=== PATIENT | male | born 1985 | race Caucasian/White ===

== ENCOUNTER 2025-02-26 12:58 | Inpatient (IN) ==
[2025-02-26 13:35] LABS: Hematocrit (blood only) 46.6 % (42.0-52.0); Hemoglobin 17.2 g/dl (14.0-18.0); Immature Granulocytes # (auto) 0.04 K/uL (0.01-0.20); Immature Granulocytes % (auto) 0.3 %; Mean Corpuscular Hemoglobin 30.6 pg (25.0-34.0); Mean Corpuscular Volume 82.9 fL (80.0-100.0); Platelet Count 284 K/uL (130-400); RDW Standard Deviation 36.2 fL (36.4-46.3); Red Blood Count 5.62 M/uL (4.70-6.10); White Blood Count 12.23 K/ul (4.8-10.8)
--- NOTE | 2025-02-26 13:36 | Emergency Department Note ---
Impression & Plan Hypertension, Headache, Elevated troponin, Leukocytosis ED Provider Note NAME: ROB NIÑO AGE: 39 SEX: M : 1985 ARRIVES VIA: Walk-In INFORMANT: [Patient] ED PROVIDER(S): [Kb Gutierrez MD] CHIEF COMPLAINT: Hypertension, headache HISTORY OF PRESENT ILLNESS: The patient is a 39-year-old male who states that 4 weeks ago, he began with a posterior headache. He saw his doctor's office recently and, was told that the headache was likely tension related. He was given steroids and placed on naproxen. The patient states the headache has persisted. At the doctor's office during the initial visit, his blood pressure was high but, it was thought likely situational. The patient does have a follow-up appointment next week, 4 days from today. The patient states that his headache has been ongoing and, he went to urgent care today. They told him to come to the ED as his blood pressure was quite high. There has been no arm or leg weakness, no chest pain or shortness of breath. He does have some leg swelling but this is a baseline issue for him. He is not currently on any type of antihypertensive medication. PMHx/PSHx/Social Hx: See Below PHYSICAL EXAM: GENERAL: Patient is in no acute distress. HEENT: No acute trauma, normocephalic atraumatic, mucous membranes moist, no nasal congestion. NECK: No stridor, no adenopathy, no meningismus, trachea is midline. LUNGS: Clear to auscultation bilaterally, no wheeze, no rhonchi, breath sounds equal. HEART: Without murmurs gallops or rubs, regular rate and rhythm. ABDOMEN: Soft, nontender, no peritonitis. EXTREMITIES: No cyanosis, full range of motion of all the joints without pain or difficulty. Mild bilateral pedal edema. NEUROLOGIC: Oriented x 3, no acute motor or sensory deficits, no focal weakness. SKIN: No jaundice, no diaphoresis. DIFFERENTIAL DIAGNOSIS: Hypertension, renal failure, electrolyte imbalance, intracranial bleeding, among others. EMERGENCY DEPARTMENT PROCEDURES: MEDICAL DECISION MAKING: There is a mild leukocytosis, this could be consistent with infection or the recent steroid use. There was a normal hemoglobin and platelet count. No renal failure or significant electrolyte abnormality. There was a bilirubin elevation although, the remaining liver enzymes were unremarkable. Patient appeared to be in a euthyroid state. ECG showed a sinus tachycardia without any acute ST elevation. Cardiac enzyme testing x 1 was slightly elevated, this troponin elevation could be secondary to cardiac injury or mismatch from the higher blood pressure. Urinalysis does not show findings of infection. Chest x-ray does not show pneumonia or significant cardiomegaly. Brain CT shows no acute bleed or mass effect. On exam, there were no focal neurologic findings. The patient was not febrile. No meningismus. The patient was given IV labetalol, 10 mg, a second at 10 mg dose was given IV. Patient was given 10 mg of oral lisinopril. Patient presents with an elevated blood pressure and headache. He was quite hypertensive while here in the ED. He did show some improvement in the blood pressure elevation with the medication that was administered. Given the persistent hypertension, given the headache, given the troponin elevation, admission/monitoring is warranted. I spoke with the patient and case management, the on-call hospitalist was consulted. Prior/Outside records/notes reviewed: None ECG per my interpretation: Indication was hypertension. The ECG shows a sinus tachycardia with a rate of 104. There is a possible old inferior and old anterior infarct. There is no acute ST elevation, no PVCs. QTc is 444. Continuous Cardiac Monitoring per my interpretation: An order was placed for continuous cardiac monitoring. The monitor shows a rate of 105 with sinus tachycardia. Imaging/x-ray results per my interpretation: Chest x-ray does not show CHF or pneumonia. No worrisome cardiomegaly. Chronic Medical/Social conditions affecting care: None Care/Management discussed with: Case management, the on-call hospitalist. Level of care consideration(s): After review of the information above and other included data: --I believe the patient requires escalation of care to admission DISPOSITION: Admission Past Med/Surg History Problem List (Updated 02/26/25 @ 15:23 by Kb Gutierrez MD) Leukocytosis (Acute) Elevated troponin (Acute) Headache (Acute) Hypertension (Acute) GERD (gastroesophageal reflux disease) Snoring Sleep apnea Palpitations (Acute) Neck pain (Acute) Neck pain (Acute) Neck pain (Acute) Medical History Diabetes Social History Smoking Status: Never smoker Preferred Language: Armenian Feels Safe at Home: Yes Allergies Allergies Allergy/AdvReac Type Severity Reaction Status Date / Time No Known Allergies Allergy Unverified 09/06/14 15:22 Home Meds Home Medications Medication Instructions Recorded Confirmed Insulin Nph (Novolin-N) 30 unit subcut QPM ##0 05/09/14 Insulin Nph (Novolin-N) 40 unit subcut QAM ##0 05/09/14 Insulin Regular (Novolin-R) unit subcut ACHS ##0 05/09/14 Multivitamin 1 tab PO DAILY ##0 07/30/14 Results & Data (ED) Vital Signs Vital Signs - 24 hr 02/26/25 13:01 02/26/25 13:30 02/26/25 13:33 Temperature 36.6 C Temperature Source Temporal Artery Scan Pulse Rate 105 H 97 H Pulse Rate from SpO2 Sensor 97 H Respiratory Rate 18 16 Respiratory Effort / Characteristics Non-Labored Spontaneous Respiratory Depth Normal Respiratory Pattern Regular Blood Pressure 201/115 H 201/131 H Blood Pressure Mean 143 149 Pulse Oximetry 98 97 Oxygen Delivery Method Room Air Sepsis Recent Fever Within 48 Hours No Sepsis New/Unexplained Change in Mental Status N/A Sepsis Action Taken by Nursing No Action Required 02/26/25 13:54 02/26/25 14:00 02/26/25 14:08 Temperature Temperature Source Pulse Rate 84 95 H Pulse Rate from SpO2 Sensor 84 Respiratory Rate 13 Respiratory Effort / Characteristics Respiratory Depth Respiratory Pattern Blood Pressure 216/146 H 198/122 H Blood Pressure Mean 155 147 Pulse Oximetry 98 Oxygen Delivery Method Sepsis Recent Fever Within 48 Hours Sepsis New/Unexplained Change in Mental Status Sepsis Action Taken by Nursing 02/26/25 14:09 02/26/25 14:24 02/26/25 14:54 Temperature Temperature Source Pulse Rate 79 85 86 Pulse Rate from SpO2 Sensor 80 Respiratory Rate 20 Respiratory Effort / Characteristics Respiratory Depth Respiratory Pattern Blood Pressure 202/131 H 202/131 H 193/124 H Blood Pressure Mean 154 Pulse Oximetry 98 Oxygen Delivery Method Sepsis Recent Fever Within 48 Hours Sepsis New/Unexplained Change in Mental Status Sepsis Action Taken by Nursing 02/26/25 15:11 Temperature Temperature Source Pulse Rate 74 Pulse Rate from SpO2 Sensor Respiratory Rate Respiratory Effort / Characteristics Respiratory Depth Respiratory Pattern Blood Pressure 161/96 H Blood Pressure Mean Pulse Oximetry Oxygen Delivery Method Sepsis Recent Fever Within 48 Hours Sepsis New/Unexplained Change in Mental Status Sepsis Action Taken by Long-Term Medications Current Medication List: was personally reviewed by me Laboratory Data Attestation: I reviewed the patient's lab results. 02/26/25 13:16 02/26/25 13:16 Lab Results 02/26/25 02/26/25 Range/Units 13:16 14:24 WBC 12.23 H (4.8-10.8) K/ul RBC 5.62 (4.70-6.10) M/uL Hgb 17.2 (14.0-18.0) g/dl Hct 46.6 (42.0-52.0) % MCV 82.9 (80.0-100.0) fL MCH 30.6 (25.0-34.0) pg MCHC 36.9 H (32.0-36.0) g/dL RDW Std Deviation 36.2 L (36.4-46.3) fL RDW Coeff of Jessica 12.0 (11.5-14.5) % Plt Count 284 (130-400) K/uL MPV 10.0 (9.4-12.4) fL Immature Gran % (Auto) 0.3 % Neut % (Auto) 72.2 % Lymph % (Auto) 18.5 % [place] % (Auto) 7.6 % Eos % (Auto) 1.0 % Baso % (Auto) 0.4 % Neut # (Auto) 8.83 H (1.40-6.50) K/uL Lymph # (Auto) 2.26 (1.20-3.40) K/uL [place] # (Auto) 0.93 H (0.11-0.59) K/uL Eos # (Auto) 0.12 (0.00-0.50) K/uL Baso # (Auto) 0.05 (0.00-0.20) K/uL Immature Gran # (Auto) 0.04 (0.01-0.20) K/uL Sodium 135 L (136-145) mmol/L Potassium 3.5 (3.5-5.1) mmol/L Chloride 96 L (98-107) mmol/L Carbon Dioxide 30 (21-32) mmol/L Anion Gap 9 (3-11) BUN 13 (6-23) mg/dl Creatinine 0.95 (0.6-1.4) mg/dl Est Cr Clr Drug Dosing 124.2 ml/min eGFR 105.72 BUN/Creatinine Ratio 13.7 (10-20) Glucose 143 H (70-99(Fasting)) mg/dl Calcium 9.6 (8.6-10.3) mg/dl Magnesium 2.1 (1.7-2.4) mg/dl Total Bilirubin 1.9 H (0.2-1.0) mg/dl AST 14 (13-39) U/L ALT 26 (7-52) U/L Alkaline Phosphatase 102 (34-104) U/L Troponin I High Sens 38.7 H (0-20) pg/ml Total Protein 7.5 (6.0-8.3) gm/dl Albumin 4.3 (3.4-5.0) gm/dl Globulin 3.2 (2.5-4.0) gm/dl Albumin/Globulin Ratio 1.3 (0.9-2) TSH 1.093 (0.300-4.500) uIu/ml Urine Color Yellow Urine Appearance Clear (Clear) Urine pH 7.5 (4.5-7.5) Ur Specific [place] 1.013 (1.000-1.030) Urine Protein 2+ H (Negative) Urine Glucose (UA) Trace H (Negative) Urine Ketones Negative (Negative) Urine Blood Negative (Negative) Urine Nitrite Negative (Negative) Urine Bilirubin Negative (Negative) Urine Urobilinogen Negative (Negative) Ur Leukocyte Esterase Negative (Negative) Urine WBC (Auto) 0-5 (0-5) /hpf Urine RBC (Auto) 0-2 (0-2) /hpf U Hyaline Cast (Auto) 0-2 (0-2) /lpf U Epithel Cells (Auto) 0-2 (0-2) /hpf Urine Bacteria (Auto) None Seen (None Seen) Urine Comment Administered Medications Discontinued Medications Labetalol HCl (Labetalol Hcl Iv 5 Mg/Ml 20ml) 10 mg IV NOW STA Stop: 02/26/25 13:33 Last Admin: 02/26/25 13:53 Dose: 10 mg Documented By: ORTEGA Labetalol HCl (Labetalol Hcl Iv 5 Mg/Ml 20ml) 10 mg IV NOW STA Stop: 02/26/25 14:46 Last Admin: 02/26/25 14:54 Dose: 10 mg Documented By: kamala Lisinopril (Lisinopril 10 Mg Tab) 10 mg PO NOW STA Stop: 02/26/25 14:03 Last Admin: 02/26/25 14:23 Dose: 10 mg Documented By: CEF Imaging Data Radiologist's Impression: Chest X-Ray 02/26/25 13:22 XR chest 1V portable CLINICAL HISTORY: weakness COMPARISON STUDY: 07/30/2014 FINDINGS: There is mild cardiomegaly without pulmonary vascular congestion. No consolidation or pleural effusion. No pneumothorax. IMPRESSION: No acute findings. ACT 112: Negative or not required by law. Electronically signed by: Teo Gtz M.D. 02/26/2025 2:[address] 02/26/25 13:22 CT head/brain wo con CLINICAL HISTORY: 39 years-old Male with salazar, high bp. Acute headache TECHNIQUE: Multiple axial CT images of the head were obtained without contrast. A dose lowering technique was utilized adhering to the principles of ALARA. CT DOSE: 657.02 mGy.cm COMPARISON: 07/30/2014. FINDINGS: No acute intracranial hemorrhage, midline shift, intracranial mass, hydrocephalus, territorial ischemia or abnormal extra-axial collection. Low- lying cerebellar tonsils. The calvarium is intact. The paranasal sinuses, mastoid air cells, and middle ear cavities are clear. IMPRESSION: No acute intracranial abnormality. ACT 112: Negative or not required by law. The above report was generated using voice recognition software. It may contain grammatical, syntax or spelling errors. Electronically signed by: Andrea Rodriguez M.D. 02/26/2025 2:11 PM Discharge Plan Visit Data Chief Complaint: Hypertension Stated Complaint: HYPERTENSION, REF BY DOC ED Provider: Kb Gutierrez Discharge Problem: Hypertension, Headache, Elevated troponin, Leukocytosis Patient Disposition: Admitted As Inpatient Condition: Fair Forms Stand Alone Forms: [employer] Prescriptions Prescriptions: No Action Insulin Nph (Novolin-N) suspension 30 unit subcut QPM Qty: 0 Insulin Nph (Novolin-N) suspension 40 unit subcut QAM Qty: 0 Insulin Regular (Novolin-R) INJECTION subcut ACHS Qty: 0 Patient Comments: COVERAGE DIRECTED BY SLIDING SCALE. Multivitamin tablet 1 tab PO DAILY Qty: 0 Referrals Referrals: Emmanuel Sandhu, [Outside Practitioners] - Discharge Problem: Hypertension Qualifiers: Hypertension type: unspecified Qualified Code(s): I10 - Essential (primary) hypertension Headache Qualifiers: Headache type: unspecified Headache chronicity pattern: acute headache I ntractability: intractable Qualified Code(s): R51.9 - Headache, unspecified Leukocytosis Qualifiers: Leukocytosis type: unspecified Qualified Code(s): D72.829 - Elevated white blood cell count, unspecified
[2025-02-26] MEDS: LABETALOL HCL IV 5 MG/ML 20ML IV STA ×2 (13:53→14:54)
[2025-02-26 13:55] LABS: Alanine Aminotransferase 26.0 U/L (7-52); Albumin Globulin Ratio 1.3 (0.9-2); Alkaline Phosphatase 102.0 U/L (34-104); Anion Gap 9.0 (3-11); Bilirubin,Total 1.9 mg/dl (0.2-1.0); Blood Urea Nitrogen 13.0 mg/dl (6-23); Calcium 9.6 mg/dl (8.6-10.3); Carbon Dioxide 30.0 mmol/L (21-32); Chloride 96.0 mmol/L (98-107); Creatinine Clr Calc Pharmacy 124.2 ml/min; Globulin 3.2 gm/dl (2.5-4.0); Glucose 143.0 mg/dl (70-99(Fasting)); Magnesium 2.1 mg/dl (1.7-2.4); Potassium 3.5 mmol/L (3.5-5.1); Sodium 135.0 mmol/L (136-145); Total Protein 7.5 gm/dl (6.0-8.3)
--- NOTE | 2025-02-26 14:03 | XRay Report ---
XR chest 1V portable CLINICAL HISTORY: weakness COMPARISON STUDY: 07/30/2014 FINDINGS: There is mild cardiomegaly without pulmonary vascular congestion. No consolidation or pleur al effusion. No pneumothorax. IMPRESSION: No acute findings. ACT 112: Negative or not required by law. Electronically signed by: Teo Gtz M.D. 02/26/2025 2:01 PM
[2025-02-26 14:08] LABS: Thyroid Stimulating Hormone 1.093 uIu/ml (0.300-4.500)
--- NOTE | 2025-02-26 14:12 | CT Scan Report ---
CT head/brain wo con CLINICAL HISTORY: 39 years-old Male with salazar, high bp. Acute headache TECHNIQUE: Multiple axial CT images of the head were obtained without contrast. A dose lowering tech nique was utilized adhering to the principles of ALARA. CT DOSE: 657.02 mGy.cm COMPARISON: 07/30/2014. FINDINGS: No acute intracranial hemorrhage, midline shift, intracranial mass, hydrocephalus, territorial ischem ia or abnormal extra-axial collection. Low-lying cerebellar tonsils. The calvarium is intact. The paranasal sinuses, mastoid air cells, and middle ear cavities are clear . IMPRESSION: No acute intracranial abnormality. ACT 112: Negative or not required by law. The above report was generated using voice recognition software. It may contain grammatical, syntax o r spelling errors. Electronically signed by: Andrea Rodriguez M.D. 02/26/2025 2:11 PM
[2025-02-26 14:47] LABS: Appearance Urine Clear (Clear); Bacteria Urine Automated None Seen (None Seen); Cast Urine Automated 0-2 /lpf (0-2); Epithelial Cell Urine Auto 0-2 /hpf (0-2); Glucose Urine UA Trace (Negative); RBC Urine Automated 0-2 /hpf (0-2); WBC Urine Automated 0-5 /hpf (0-5)
--- NOTE | 2025-02-26 15:15 | History & Physical Report ---
Date of Service February 26, 2025 Assessment & Plan (1) Hypertensive urgency: Plan: Patient is a 39 year old M with a past medical history of DM Type II on insulin presenting with headaches and hypertension. Patient was seen at urgent care today for headache, found to be severely hypertension 200's/100's and then sent here. NO history of hypertension, however, patient has also not had consistent outpatient follow-up. Headaches started over a month ago, was seen by PCP via telehealth and prescribed naproxen, Flexeril. Symptoms persisted, so he had a follow-up appt at PCP office, was found to be hypertensive and prescribed a steroid dose pack for the headaches. Headaches continued to persist, steroid treatment completed on 02/22. Headaches originate in occiput and travel to forehead, not associated with activity, and are without aura or focal changes. H eadaches usually last ~2 hours and are partially relieved with OTC acetaminophen and/or NSAIDS. Also reports having bilateral lower leg swelling that has been present for "long time" and present prior to headaches starting. #Hypertensive Urgency * Admit to [facility] for further management * BP's initially 200's/100's with headache * Labetalol x 2 given in ED; Lisinopril 10 mg started-> BP 160's/80's afterwards with improvement in headache * No evidence of EOD- Creatinine 0.95 * Lisinopril started in ED-> Continue Lisinopril 10 mg daily * Trend BP's * Lopressor 5mg as needed for SBP >160 ordered * Trend labs and monitor renal functioning; lipids with AM labs #Heart Failure, new onset #Elevated Troponin * Trop elevated 38.7, down to 27.2 at 2H recheck; no CP * EKG showing sinus tachy * BNP elevated 207 * Bilateral lower leg edema longstanding without outpatient followup, reportedly, resolves with BLE elevation * Chest Xray with mild cardiomegaly with possible pulmonary vascular congestion- >Lasix 20 mg given x 1 in ED * Routine Echo ordered; suspect long-standing HTN with new onset HF * Discharge planning- will need PCP follow-up at time of discharge #Diabetes Type I, insulin-dependent * Self-managed insulin outpatient with no PCP oversight; NPH 40 units BID with Regular insulin at meals 20-30 units; AM blood sugars 180's * A1C 8.5% today * SSI while inpatient-> adjust as needed * Continue home NPH regimen 40 units BID * Will need diabetic teaching at bedside when able * Discharge planning- may need scripts for DME coverage of Accucheck supplies DVT Ppx: SCDs Code status: Full PCP: Dr. Jennie Fitzgerald Dispo: Admit for additional management Patient seen in collaboration with Dr. Cagle. Please see addendum.I spent a total of 50 minutes coordinating, documenting and providing care for this patient excluding time spent in the performance of separately billed services or time spent by another provider/QHP. (2) CHF (congestive heart failure): (3) Elevated troponin: (4) Diabetes: History of Present Illness Primary Care Provider: Jennie Fitzgerald PA-C Patient is a 39 year old M with a past medical history of DM Type II on insulin presenting with headaches and hypertension. Patient was seen at urgent care today for headache, found to be severely hypertension 200's/100's and then sent here. NO history of hypertension, however, patient has also not had consistent outpatient follow-up. Headaches started over a month ago, was seen by PCP via telehealth and prescribed naproxen, Flexeril. Symptoms persisted, so he had a follow-up appt at PCP office, was found to be hypertensive and prescribed a romelia roid dose pack for the headaches. Headaches continued to persist, steroid treatment completed on 02/22. Headaches originate in occiput and travel to forehead, not associated with activity, and are without aura or focal changes. Headaches usually last ~2 hours and are partially relieved with OTC acetaminophen and/or NSAIDS. Also reports having bilateral lower leg swelling that has been present for "long time" and present prior to headaches starting. Denies fever, chills, weight loss, weakness,cognitive changes, vision/hearing changes, chest pain, SOB, difficulty breathing, urinary concerns, N/V/D, joint swelling/pain, ambulation difficulty, skin rashes, lesions, bleeding, bruising. In the emergency department, patient was hypertensive with BP's 200's/100's. Complaining of headache starting in occiput and travelling up to forehead. Trop 38.7 with no acute chest pain; trop trended down to 27.2. TSH normal. WBC elevated to 12.23; recent history of steroid use. No signs of sepsis. EKG showing sinus tachycardia, vent rate 104 bpm, QTc 444. Chest Xray showed mild cardiomegaly without pulmonary vascular congestion. No consolidation or pleural effusion. No pneumothorax. Head CT without acute intracranial abnormality. History of Type I diabetes with no outpatient follow-up. Reports buying insulin over the counter at [facility], uses a sliding scale of Humulin regular and NPH. Morning blood sugars are usually in 180's. He typically gives himself 40 units NPH in the morning with 10-20 units Regular, then for lunch he takes 20-30 units regular, and for dinner NPH 40 units with 20 units regular insulin. No A1C available in external chart. As per external chart review, patient was seen by PCP on 02/16/25 for follow-up neck tension and HAYDEN, was on Naproxen with some relief, but experiencing pain while sleeping. HAYDEN starts at the occiput and comes forward; BP elevated at appt to 172/92 Medrol Dosepak ordered. Headache history dating back to 02/08 when he had a telemed appt- was prescribed naproxen and Flexeril. History obtained primarily from the patient and via hospitalization record. External chart review obtained from [facility] [employer]. Allergies Allergy/AdvReac Type Severity Reaction Status Date / Time No Known Allergies Allergy Unverified 02/26/25 16:04 Home Medications Medication Instructions Recorded Confirmed Type multivitamin 1 tab PO DAILY ##0 07/30/14 02/26/25 History Humulin R Regular U-100 Insuln 1 sliding scale dose subcut UD 02/26/25 02/26/25 History fluticasone propionate 50 1 spray intranasal DAILY 02/26/25 02/26/25 History mcg/actuation nasal spray,suspension (Flonase Allergy Relief) insulin NPH isoph U-100 human 100 40 unit subcut BID 02/26/25 02/26/25 History unit/mL subcutaneous suspension (Humulin N NPH U-100 Insulin (isophane susp)) Past Med/Surg History Problem List (Updated 02/26/25 @ 16:26 by DENISE Baumann) Hypertensive urgency CHF (congestive heart failure) Leukocytosis (Acute) Elevated troponin (Acute) Headache (Acute) Hypertension (Acute) GERD (gastroesophageal reflux disease) Snoring Sleep apnea Palpitations (Acute) Neck pain (Acute) Neck pain (Acute) Neck pain (Acute) Medical History Diabetes Social History Smoking Status: Never smoker Preferred Language: Romanian Feels Safe at Home: Yes Review of Systems Review of Systems: All systems reviewed & are unremarkable except as noted in HPI & below Physical Exam Physical Exam: VITALS: Reviewed. WEIGHT/BMI reviewed. GEN: Healthy appearing, well-developed, NAD. PSYCH: Good Judgment. AOx3. Normal memory, mood, and affect. HEENT -Head: NC/AT; -Eyes: PERRL, EOMI. No discharge or redn ess; -Ears: External ears are normal. Normal TMs. -Nose: Normal nares. -Mouth and throat: MMM. Normal gums, muc eunice, palate,. Good dentition. NECK: Supple, with no masses. CV: RRR, no m/r/g. LUNGS: CTAB, no w/r/c. ABD: Soft, NT/ND, NBS, no masses or organomegaly. : N/A SKIN: Warm, well perfused. No skin rashes or abnormal lesions. MSK: No deformities, Normal gait. EXT: No clubbing, cyanosis, or edema. NEURO: Ambulating with no limitations. Normal muscle strength and tone. No focal deficits. Results & Data Results & Data Vital Signs (Past 12 Hours) Vital Signs Temp Pulse Resp BP Pulse Ox O2 Del Method 02/26/25 14:54 86 193/124 H 02/26/25 14:24 85 202/131 H 02/26/25 14:09 79 20 202/131 H 98 02/26/25 14:08 95 H 02/26/25 14:00 84 13 198/122 H 98 02/26/25 13:54 216/146 H 02/26/25 13:33 97 H 16 97 02/26/25 13:30 201/131 H 02/26/25 13:01 36.6 C 105 H 18 201/115 H 98 Room Air Laboratory Results Short CBC 02/26/25 Range/Units 13:16 WBC 12.23 H (4.8-10.8) K/ul Hgb 17.2 (14.0-18.0) g/dl Hct 46.6 (42.0-52.0) % Plt Count 284 (130-400) K/uL BMP 02/26/25 13:16 Sodium 135 L Potassium 3.5 Chloride 96 L Carbon Dioxide 30 BUN 13 Creatinine 0.95 Glucose 143 H Calcium 9.6 Liver Function 02/26/25 Range/Units 13:16 Total Bilirubin 1.9 H (0.2-1.0) mg/dl AST 14 (13-39) U/L ALT 26 (7-52) U/L Alkaline Phosphatase 102 (34-104) U/L Albumin 4.3 (3.4-5.0) gm/dl Urine 02/26/25 Range/Units 14:24 Urine Color Yellow Urine Appearance Clear (Clear) Urine pH 7.5 (4.5-7.5) Ur Specific [place] 1.013 (1.000-1.030) Urine Protein 2+ H (Negative) Urine Glucose (UA) Trace H (Negative) Diagnostic Findings Chest X-Ray 02/26/25 13:22 XR chest 1V portable CLINICAL HISTORY: weakness COMPARISON STUDY: 07/30/2014 FINDINGS: There is mild cardiomegaly without pulmonary vascular congestion. No consolidation or pleural effusion. No pneumothorax. IMPRESSION: No acute findings. ACT 112: Negative or not required by law. Electronically signed by: Teo Gtz M.D. 02/26/2025 2:[address] 02/26/25 13:22 CT head/brain wo con CLINICAL HISTORY: 39 years-old Male with hayden, high bp. Acute headache TECHNIQUE: Multiple axial CT images of the head were obtained without contrast. A dose lowering technique was utilized adhering to the principles of ALARA. CT DOSE: 657.02 mGy.cm COMPARISON: 07/30/2014. FINDINGS: No acute intracranial hemorrhage, midline shift, intracranial mass, hydrocephalus, territorial ischemia or abnormal extra-axial collection. Low- lying cerebellar tonsils. The calvarium is intact. The paranasal sinuses, mastoid air cells, and middle ear cavities are clear. IMPRESSION: No acute intracranial abnormality. ACT 112: Negative or not required by law. The above report was generated using voice recognition software. It may contain grammatical, syntax or spelling errors. Electronically signed by: Andrea Rodriguez M.D. 02/26/2025 2:11 PM Supervising Physician Co-Signing Physician Notes Attending addendum: The patient was seen and examined in emergency room He has been complaining of increasing headache and noted to have very high blood pressure as an outpatient He has diabetes and has been managing his diabetes with insulin by himself so far Denies any numbness and or tingling in the extremities and denies any other significant symptoms except headache On examination Obese with No distress at rest and noted to have a blood pressure at 164/105 Chestclear to auscultate bilaterally HeartS1-S2, regular Abdomendistended and nontender, bowel sound present Extremitiestrace edema bilaterally His admission labs, EKG and imaging studies reviewed Noted to have mild CHF with cardiomegaly Uncontrolled diabetes and uncontrolled high blood pressure with headache He received intravenous labetalol x 2 and also started with oral lisinopril and he will be given intravenous beta-zhao as needed to control blood pressure Will ask glycemic pharmacist consult and dietary consult for management of his diabetes with hemoglobin A1c of.8.5 Acute assessment and plan as outlined above by Prerna WALKER and take the full responsibility care in the hospital Total time taken to talk to patient, examining him review medications and study results [address] Mari Cagle
[2025-02-26] MEDS ORDERED: CARBOHYDRATES FOR HYPOGLYCEMIA PO PRN (16:06)
[2025-02-26] MEDS ORDERED: GLUCAGON FOR INJ 1 MG VIAL SQ PRN (16:06)
[2025-02-26] MEDS ORDERED: GLUCOSE 40% GEL 15 GM TUBE PO PRN (16:06)
[2025-02-26] MEDS ORDERED: GLUCOSE 10 TAB/TUBE PO PRN (16:06)
[2025-02-26] MEDS ORDERED: PHARMACY GLYCEMIC MGMT CONSULT PRN (16:06)
[2025-02-26] MEDS ORDERED: DEXTROSE 50% 50 ML SYRINGE IV PRN (16:06)
[2025-02-26] MEDS: FUROSEMIDE INJ 20 MG/2 ML VIAL IV ONE (16:10)
[2025-02-26 16:13] LABS: Hemoglobin A1C 8.5 % (4.5-5.6)
[2025-02-26] MEDS: INSULIN ASPART PER UNIT CHARGE SC SCH (18:30)
[2025-02-26] MEDS: NovoLIN-N (NPH) PER UNIT CHARGE SQ SCH (18:30)
[2025-02-26] MEDS: Nursing to Pharmacy Communication SCH (18:34)
[2025-02-26] MEDS ORDERED: ONDANSETRON INJ 2 MG/ML 2 ML VIAL IV PRN (19:11)
[2025-02-26] MEDS ORDERED: ACETAMINOPHEN 325 MG TAB PO PRN (19:11)
[2025-02-26] MEDS ORDERED: MAGNESIUM HYDROXIDE SUSP 30 ML UDC PO PRN (19:11)
[2025-02-26] MEDS ORDERED: POLYETHYLENE (MIRALAX) 17 GM PACK PO PRN (19:11)
[2025-02-26] MEDS ORDERED: ALUMINUM/MAGNESIUM SUSP 30 ML UDC PO PRN (19:11)
[2025-02-26] MEDS: INSULIN HUMAN REGULAR PER UNIT 10 UNITS in SYRINGE 9.9 ML IV ONE (21:52)
[2025-02-26] MEDS: CALCIUM CARBONATE 500 MG CHEWABLE TAB PO PRN (21:55)
[2025-02-27] MEDS: INSULIN ASPART PER UNIT CHARGE SC SCH (01:13)
[2025-02-27] MEDS: METOPROLOL TARTRATE 1 MG/ML VIAL IV PRN (04:59)
[2025-02-27 07:45] LABS: Hematocrit (blood only) 45.0 % (42.0-52.0); Hemoglobin 15.8 g/dl (14.0-18.0); Mean Corpuscular Hemoglobin 29.5 pg (25.0-34.0); Mean Corpuscular Volume 84.0 fL (80.0-100.0); Platelet Count 241 K/uL (130-400); RDW Standard Deviation 37.4 fL (36.4-46.3); Red Blood Count 5.36 M/uL (4.70-6.10); White Blood Count 10.99 K/ul (4.8-10.8)
[2025-02-27 08:05] LABS: Anion Gap 10.0 (3-11); Blood Urea Nitrogen 22.0 mg/dl (6-23); Calcium 9.2 mg/dl (8.6-10.3); Carbon Dioxide 28.0 mmol/L (21-32); Chloride 95.0 mmol/L (98-107); Cholesterol 205.0 mg/dl (0-200); Creatinine Clr Calc Pharmacy 79.0 ml/min; Glucose 167.0 mg/dl (70-99(Fasting)); HDL Cholesterol 37.0 mg/dl; Potassium 3.4 mmol/L (3.5-5.1); Sodium 133.0 mmol/L (136-145); Triglycerides 156.0 mg/dl (0-150)
[2025-02-27] MEDS: MULTIVITAMIN TAB PO SCH (09:34)
[2025-02-27] MEDS: INSULIN HUMAN NPH SC SCH (09:35)
[2025-02-27] MEDS: POTASSIUM CHLORIDE CRTAB 20 MEQ TABCR PO STA (11:51)
--- NOTE | 2025-02-27 13:46 | XCELERA ---
[id number] [id number]
--- NOTE | 2025-02-27 13:53 | Pharmacy Report ---
Pharmacy Glycemic Short Note 2 - Date of Service February 27, 2025 - Glycemic Short BSG Results (Last 24 hours): 02/26/25 02/26/25 02/26/25 13:16 17:10 20:12 Glucose 143 H POC Glucose 159 H 383 H* 02/26/25 02/27/25 02/27/25 20:14 00:50 04:47 Glucose POC Glucose 383 H* 160 H 125 H 02/27/25 02/27/25 02/27/25 07:08 07:54 12:27 Glucose 167 H POC Glucose 174 H 248 H OUTPATIENT ANTIDIABETIC REGIMEN: * NPH 40 units bid, regular insulin 20-30 units with meals ASSESSMENT: * 39 year old admitted with hypertensive urgency. Type 1 diabetic - per notes, patient self manages insulin with no PCP oversight. Will continue with NPH 40 units bid dosing. Fasting BSG 167 mg/dL this AM. Will tighten novolog at lunch time check. PLAN FOR INPATIENT GLYCEMIC CONTROL: * Hold outpatient oral diabetes medications * Basal insulin * NPH 40 units bidm * Bolus insulin * NovoLog per scale ACHS or Q6hrs while NPO * Goal Range: Low 110 mg/dL - High 140 mg/dL * Correction Factor: 15 mg/dL/unit * Nutritional / Prandial insulin per carb ratio of 1 unit per 4 grams CHO consumed
[2025-02-27 14:39] LABS: Anion Gap 8 (3-11); Blood Urea Nitrogen 26 mg/dl (6-23); Calcium 9.4 mg/dl (8.6-10.3); Carbon Dioxide 28 mmol/L (21-32); Chloride 91 mmol/L (98-107); Creatinine Clr Calc Pharmacy 71.4 ml/min; Glucose 312 mg/dl (70-99(Fasting)); Sodium 127 mmol/L (136-145)
--- NOTE | 2025-02-27 14:56 | Hospitalist Progress Note ---
Date of Service February 27, 2025 Assessment & Plan (1) Hypertensive urgency: Plan: Patient is a 39 year old M with a past medical history of DM Type II on insulin presenting with headaches and hypertension. Patient was seen at urgent care today for headache, found to be severely hypertension 200's/100's and then sent here. NO history of hypertension, however, patient has also not had consistent outpatient follow-up. Headaches started over a month ago, was seen by PCP via telehealth and prescribed naproxen, Flexeril. Symptoms persisted, so he had a follow-up appt at PCP office, was found to be hypertensive and prescribed a steroid dose pack for the headaches. Headaches continued to persist, steroid treatment completed on 02/22. Headaches originate in occiput and travel to forehead, not associated with activity, and are without aura or focal changes. Headaches usually last ~2 hours and are partially relieved with OTC acetaminophen and/or NSAIDS. Also reports having bilateral lower leg swelling that has been present for "long time" and present prior to headaches starting. #Hypertensive Urgency * Admitted to [facility] for further management * BP's initially 200's/100's with headache in ED * Labetalol x 2 given in ED; Lisinopril 10 mg started-> BP 160's/80's afterwards with improvement in headache * No evidence of EOD- Creatinine 0.95 * Lisinopril started in ED-> Continue Lisinopril 10 mg daily * Trend BP's * Lopressor 5mg as needed for SBP >160 ordered * Trend labs and monitor renal functioning; lipids with AM labs HEVER 02/27 Pt's blood pressure currently improved but received IV metoprolol early AM. Also received already ordered lisinopril 10 mg this AM. BMP then available and pt's Cr 1.68. Denies any headache. reports feeling well. Drinking plenty of water. Echo pending. Discussed that this time would not continue lisinopril given his elevation in creatinine. Plan to re-check BMP, pt updated and he is still hopeful to be discharged later today. Discussed BP monitoring at home, says he will get blood pressure cuff. Reports he has a follow up appointment scheduled for Saturday with PCP. #Elevated Troponin - secondary to hypertension initially concern for possible new onset of CHF * Trop elevated 38.7, down to 27.2 at 2H recheck; no CP * EKG showing sinus tachy * BNP mildly elevated 207 * Bilateral lower leg edema longstanding without outpatient followup, r eportedly, resolves with BLE elevation, chronic venous stasis changes noted, no significant edema noted on 02/27 * Chest Xray with mild cardiomegaly with possible pulmonary vascular congestion- >Lasix 20 mg given x 1 in ED * Routine Echo obtained * Discharge planning- will need PCP follow-up at time of discharge #Diabetes Type I, insulin-dependent * Self-managed insulin outpatient with no PCP oversight; NPH 40 units BID with Regular insulin at meals 20-30 units; AM blood sugars 180's * A1C 8.5% today * SSI while inpatient-> adjust as needed * Continue home NPH regimen 40 units BID * diabetic education (2) CHF (congestive heart failure): (3) Elevated troponin: (4) Diabetes: Admission and Anticipated Discharge Date Admission Date: February 26, 2025 Subjective Pt seen in follow up of hypertensive urgency yesterday Was started on lisinopril yesterday and received 20 iv lasix for some LE edema, poss. CHF Also required labetalol in ED and received iv metoprolol this AM Cr this AM at 1.68, yesterday in ER was normal at 0.95 Review of Systems Review of Systems: All systems reviewed & are unremarkable except as noted in Subjective Physical Exam Physical Exam: GEN: obese adult M in NAD. HEENT: NC/AT; PERRL, EOMI. MMM. NECK: Supple CV: RRR, no m/r/g. LUNGS: CTAB ABD: Soft, NT/ND, NBS SKIN: Warm, well perfused. No skin rashes or abnormal lesions. MSK: No deformities, moves extremities EXT: No edema. Moves extremities. NEURO: AOx3. speech fluent, answers appropriately. moves extremities. Results & Data Results & Data Vital Signs (Past 12 Hours) Vital Signs Temp Pulse Pulse Resp BP BP BP 02/27/25 14:06 36.4 C L 98 H 16 130/80 02/27/25 11:19 36.6 C 92 H 18 158/94 H 02/27/25 10:06 70 02/27/25 08:28 36.8 C 82 18 142/86 H 02/27/25 05:46 76 142/91 H 02/27/25 04:59 93 H 162/92 H 02/27/25 03:50 36.9 C 93 H 18 162/92 H Pulse Ox O2 Del Method 02/27/25 14:06 99 Room Air 02/27/25 11:19 98 Room Air 02/27/25 10:06 02/27/25 08:28 97 Room Air 02/27/25 05:46 02/27/25 04:59 02/27/25 03:50 98 Room Air Laboratory Results 02/27/25 02/27/25 02/27/25 Range/Units 14:02 12:27 07:54 WBC (4.8-10.8) K/ul RBC (4.70-6.10) M/uL Hgb (14.0-18.0) g/dl Hct (42.0-52.0) % MCV (80.0-100.0) fL MCH (25.0-34.0) pg MCHC (32.0-36.0) g/dL RDW Std Deviation (36.4-46.3) fL RDW Coeff of Jessica (11.5-14.5) % Plt Count (130-400) K/uL MPV (9.4-12.4) fL Sodium 127 L (136-145) mmol/L Potassium TNP (3.5-5.1) mmol/L Chloride 91 L (98-107) mmol/L Carbon Dioxide 28 (21-32) mmol/L Anion Gap 8 (3-11) BUN 26 H (6-23) mg/dl Creatinine 1.86 H (0.6-1.4) mg/dl Est Cr Clr Drug Dosing 71.4 ml/min eGFR 47.21 BUN/Creatinine Ratio 14.0 (10-20) Glucose 312 H* (70-99(Fasting)) mg/dl POC Glucose 248 H 174 H (70-99) mg/dl Estimat Average Glucose mg/dl Hemoglobin A1c (4.5-5.6) % Calcium 9.4 (8.6-10.3) mg/dl Troponin I High Sens (0-20) pg/ml B-Natriuretic Peptide (0-100) pg/ml Triglycerides (0-150) mg/dl Cholesterol (0-200) mg/dl LDL Cholesterol, Calc mg/dl VLDL Cholesterol, Calc (0-30) mg/dl HDL Cholesterol mg/dl Cholesterol/HDL Ratio (0-5) 02/27/25 02/27/25 02/27/25 Range/Units 07:08 04:47 00:50 WBC 10.99 H (4.8-10.8) K/ul RBC 5.36 (4.70-6.10) M/uL Hgb 15.8 (14.0-18.0) g/dl Hct 45.0 (42.0-52.0) % MCV 84.0 (80.0-100.0) fL MCH 29.5 (25.0-34.0) pg MCHC 35.1 (32.0-36.0) g/dL RDW Std Deviation 37.4 (36.4-46.3) fL RDW Coeff of Jessica 12.5 (11.5-14.5) % Plt Count 241 (130-400) K/uL MPV 10.0 (9.4-12.4) fL Sodium 133 L (136-145) mmol/L Potassium 3.4 L (3.5-5.1) mmol/L Chloride 95 L (98-107) mmol/L Carbon Dioxide 28 (21-32) mmol/L Anion Gap 10 (3-11) BUN 22 (6-23) mg/dl Creatinine 1.68 H D (0.6-1.4) mg/dl Est Cr Clr Drug Dosing 79.0 ml/min eGFR 53.34 BUN/Creatinine Ratio 13.1 (10-20) Glucose 167 H (70-99(Fasting)) mg/dl POC Glucose 125 H 160 H (70-99) mg/dl Estimat Average Glucose mg/dl Hemoglobin A1c (4.5-5.6) % Calcium 9.2 (8.6-10.3) mg/dl Troponin I High Sens (0-20) pg/ml B-Natriuretic Peptide (0-100) pg/ml Triglycerides 156 H (0-150) mg/dl Cholesterol 205 H (0-200) mg/dl LDL Cholesterol, Calc 137 mg/dl VLDL Cholesterol, Calc 31 H (0-30) mg/dl HDL Cholesterol 37 mg/dl Cholesterol/HDL Ratio 5.5 H (0-5) 02/26/25 02/26/25 02/26/25 Range/Units 20:14 20:12 17:10 WBC (4.8-10.8) K/ul RBC (4.70-6.10) M/uL Hgb (14.0-18.0) g/dl Hct (42.0-52.0) % MCV (80.0-100.0) fL MCH (25.0-34.0) pg MCHC (32.0-36.0) g/dL RDW Std Deviation (36.4-46.3) fL RDW Coeff of Jessica (11.5-14.5) % Plt Count (130-400) K/uL MPV (9.4-12.4) fL Sodium (136-145) mmol/L Potassium (3.5-5.1) mmol/L Chloride (98-107) mmol/L Carbon Dioxide (21-32) mmol/L Anion Gap (3-11) BUN (6-23) mg/dl Creatinine (0.6-1.4) mg/dl Est Cr Clr Drug Dosing ml/min eGFR BUN/Creatinine Ratio (10-20) Glucose (70-99(Fasting)) mg/dl POC Glucose 383 H* 383 H* 159 H (70-99) mg/dl Estimat Average Glucose mg/dl Hemoglobin A1c (4.5-5.6) % Calcium (8.6-10.3) mg/dl Troponin I High Sens (0-20) pg/ml B-Natriuretic Peptide (0-100) pg/ml Triglycerides (0-150) mg/dl Cholesterol (0-200) mg/dl LDL Cholesterol, Calc mg/dl VLDL Cholesterol, Calc (0-30) mg/dl HDL Cholesterol mg/dl Cholesterol/HDL Ratio (0-5) 02/26/25 02/26/25 02/26/25 Range/Units 16:07 15:15 13:16 WBC (4.8-10.8) K/ul RBC (4.70-6.10) M/uL Hgb (14.0-18.0) g/dl Hct (42.0-52.0) % MCV (80.0-100.0) fL MCH (25.0-34.0) pg MCHC (32.0-36.0) g/dL RDW Std Deviation (36.4-46.3) fL RDW Coeff of Jessica (11.5-14.5) % Plt Count (130-400) K/uL MPV (9.4-12.4) fL Sodium (136-145) mmol/L Potassium (3.5-5.1) mmol/L Chloride (98-107) mmol/L Carbon Dioxide (21-32) mmol/L Anion Gap (3-11) BUN (6-23) mg/dl Creatinine (0.6-1.4) mg/dl Est Cr Clr Drug Dosing ml/min eGFR BUN/Creatinine Ratio (10-20) Glucose (70-99(Fasting)) mg/dl POC Glucose (70-99) mg/dl Estimat Average Glucose 197 mg/dl Hemoglobin A1c 8.5 H (4.5-5.6) % Calcium (8.6-10.3) mg/dl Troponin I High Sens 27.2 H D (0-20) pg/ml B-Natriuretic Peptide 207 H (0-100) pg/ml Triglycerides (0-150) mg/dl Cholesterol (0-200) mg/dl LDL Cholesterol, Calc mg/dl VLDL Cholesterol, Calc (0-30) mg/dl HDL Cholesterol mg/dl Cholesterol/HDL Ratio (0-5) Medications Administered Current Inpatient Medications Acetaminophen (Acetaminophen 325 Mg Tab) 650 mg PO Q4H PRN PRN Reason: Pain or Fever Stop: 03/28/25 19:10 Al Hydrox/Mg Hydrox/Simethicone (Aluminum/Magnesium Susp 30 Ml Udc) 15 ml PO Q4H PRN PRN Reason: Dyspepsia Stop: 03/28/25 19:10 Calcium Carbonate (Calcium Carbonate 500 Mg Chewable Tab) 500 mg PO BID PRN PRN Reason: Indigestion Stop: 03/28/25 20:36 Last Admin: 02/26/25 21:55 Dose: 500 mg Dextrose (Dextrose 50% 50 Ml Syringe) 25 - 50 ml IV UD PRN; Protocol PRN Reason: Hypoglycemia Protocol Stop: 03/28/25 16:05 Glucagon (Glucagon For Inj 1 Mg Vial) 1 mg SQ UD PRN; Protocol PRN Reason: Hypoglycemia Protocol Stop: 03/28/25 16:05 Glucose (Glucose 40% Gel 15 Gm Tube) 15 - 30 gm PO UD PRN; Protocol PRN Reason: Hypoglycemia Protocol Stop: 03/28/25 16:05 Glucose (Glucose 10 Tab/Tube) 4 - 8 tab PO UD PRN; Protocol PRN Reason: Hypoglycemia Protocol Stop: 03/28/25 16:05 Insulin Aspart (Insulin Aspart Per Unit Charge) 0 units SC ACHS [facility] Stop: 03/28/25 16:29 Last Admin: 02/27/25 12:43 Dose: 21 units Insulin Human NPH (Insulin Human Nph) 40 units SC BIDM [facility] Stop: 03/29/25 08:59 Last Admin: 02/27/25 09:35 Dose: 40 units Lisinopril (Lisinopril 5 Mg Tab) 5 mg PO [facility] Stop: 03/29/25 08:59 Last Admin: 02/27/25 09:57 Dose: Not Given Lisinopril (Lisinopril 10 Mg Tab) 10 mg PO [facility] Stop: 03/29/25 08:59 Last Admin: 02/27/25 09:34 Dose: 10 mg Magnesium Hydroxide (Magnesium Hydroxide Susp 30 Ml Udc) 30 ml PO Q12H PRN PRN Reason: Constipation Stop: 03/28/25 19:10 Metoprolol Tartrate (Metoprolol Tartrate 1 Mg/Ml Vial) 5 mg IV Q6 PRN PRN Reason: Hypertension SBP >160 Stop: 03/28/25 19:10 Last Admin: 02/27/25 04:59 Dose: 5 mg Miscellaneous (Carbohydrates For Hypoglycemia ) 15 - 30 gm PO UD PRN PRN Reason: Hypoglycemia Protocol Stop: 03/28/25 16:05 Miscellaneous Information (Pharmacy Glycemic Mgmt Consult) 1 each N/A UD PRN PRN Reason: Consult Stop: 03/28/25 16:05 Multivitamins (Multivitamin Tab) [facility] Stop: 03/29/25 08:59 Last Admin: 02/27/25 09:34 Dose: 1 tab Ondansetron HCl (Ondansetron Inj 2 Mg/Ml 2 Ml Vial) 4 mg IV Q6H PRN PRN Reason: Nausea Stop: 03/28/25 19:10 Polyethylene Glycol (Polyethylene (Miralax) 17 Gm Pack) 17 gm PO DAILY PRN PRN Reason: Constipation Stop: 03/28/25 19:10
--- NOTE | 2025-02-27 16:13 | Discharge Summary ---
Date of Service February 27, 2025 Admission HPI Per Admitting Provider Patient is a 39 year old M with a past medical history of DM Type II on insulin presenting with headaches and hypertension. Patient was seen at urgent care today for headache, found to be severely hypertension 200's/100's and then sent here. NO history of hypertension, however, patient has also not had consistent outpatient follow-up. Headaches started over a month ago, was seen by PCP via telehealth and prescribed naproxen, Flexeril. Symptoms persisted, so he had a follow-up appt at PCP office, was found to be hypertensive and prescribed a steroid dose pack for the headaches. Headaches continued to persist, steroid treatment completed on 02/22. Headaches originate in occiput and travel to forehead, not associated with activity, and are without aura or focal changes. Headaches usually last ~2 hours and are partially relieved with OTC acetaminophen and/or NSAIDS. Also reports having bilateral lower leg swelling that has been present for "long time" and present prior to headaches starting. Denies fever, chills, weight loss, weakness,cognitive changes, vision/hearing changes, chest pain, SOB, difficulty breathing, urinary concerns, N/V/D, joint swelling/pain, ambulation difficulty, skin rashes, lesions, bleeding, bruising. In the emergency department, patient was hypertensive with BP's 200's/100's. Complaining of headache starting in occiput and travelling up to forehead. Trop 38.7 with no acute chest pain; trop trended down to 27.2. TSH normal. WBC elevated to 12.23; recent history of steroid use. No signs of sepsis. EKG showing sinus tachycardia, vent rate 104 bpm, QTc 444. Chest Xray showed mild cardiomegaly without pulmonary vascular congestion. No consolidation or pleural effusion. No pneumothorax. Head CT without acute intracranial abnormality. History of Type I diabetes with no outpatient follow-up. Reports buying insulin over the counter at [facility], uses a sliding scale of Humulin regular and NPH. Morning blood sugars are usually in 180's. He typically gives himself 40 units NPH in the morning with 10-20 units Regular, then for lunch he takes 20-30 units regular, and for dinner NPH 40 units with 20 units regular insulin. No A1C available in external chart. As per external chart review, patient was seen by PCP on 02/16/25 for follow-up neck tension and HAYDEN, was on Naproxen with some relief, but experiencing pain while sleeping. HAYDEN starts at the occiput and comes forward; BP elevated at appt to 172/92 Medrol Dosepak ordered. Headache history dating back to 02/08 when he had a telemed appt- was prescribed naproxen and Flexeril. History obtained primarily from the patient and via hospitalization record. External chart review obtained from [facility]. Admission Exam Per Admitting Provider VITALS: Reviewed. WEIGHT/BMI reviewed. GEN: Healthy appearing, well-developed, NAD. PSYCH: Good Judgment. AOx3. Normal memory, mood, and affect. HEENT -Head: NC/AT; -Eyes: PERRL, EOMI. No discharge or redness; -Ears: External ears are normal. Normal TMs. -Nose: Normal nares. -Mouth and throat: MMM. Normal gums, mucosa, palate,. Good dentition. NECK: Supple, with no masses. CV: RRR, no m/r/g. LUNGS: CTAB, no w/r/c. ABD: Soft, NT/ND, NBS, no masses or organomegaly. : N/A SKIN: Warm, well perfused. No skin rashes or abnormal lesions. MSK: No deformities, Normal gait. EXT: No clubbing, cyanosis, or edema. NEURO: Ambulating with no limitations. Normal muscle strength and tone. No focal deficits. Principal Diagnosis Hypertensive urgency Acute kidney injury Uncontrolled diabetes, DM1, with Hgb A1c 8.5% Discharge Exam GEN: obese adult M in NAD. HEENT: NC/AT; PERRL, EOMI. MMM. NECK: Supple CV: RRR, no m/r/g. LUNGS: CTAB ABD: Soft, NT/ND, NBS SKIN: Warm, well perfused. No skin rashes or abnormal lesions. MSK: No deformities, moves extremities EXT: No edema. Moves extremities. NEURO: AOx3. speech fluent, answers appropriately. moves extremities. Discharge Data Allergies Allergy/AdvReac Type Severity Reaction Status Date / Time No Known Allergies Allergy Unverified 02/26/25 16:04 Consultations 02/26/25 15:04 ED Decision to Admit Stat Ordered Studies 02/26/25 13:22 CT head/brain wo con Stat FINDINGS: No acute intracranial hemorrhage, midline shift, intracranial mass, hydrocephalus, territorial ischemia or abnormal extra-axial collection. Low- lying cerebellar tonsils. The calvarium is intact. The paranasal sinuses, mastoid air cells, and middle ear cavities are clear. IMPRESSION: No acute intracranial abnormality. Hospital Course (1) Hypertensive urgency: Patient is a 39 year old M with a past medical history of DM Type II on insulin presenting with headaches and hypertension. Patient was seen at urgent care today for headache, found to be severely hypertension 200's/100's and then sent here. NO history of hypertension, however, patient has also not had consistent outpatient follow-up. Headaches started over a month ago, was seen by PCP via telehealth and prescribed naproxen, Flexeril. Symptoms persisted, so he had a follow-up appt at PCP office, was found to be hypertensive and prescribed a steroid dose pack for the headaches. Headaches continued to persist, steroid treatment completed on 02/22. Headaches originate in occiput and travel to forehead, not associated with activity, and are without aura or focal changes. Headaches usually last ~2 hours and are partially relieved with OTC acetaminophen and/or NSAIDS. Also reports having bilateral lower leg swelling that has been present for "long time" and present prior to headaches starting. #Hypertensive Urgency * Admitted to [facility] for further management * BP's initially 200's/100's with headache in ED * Labetalol x 2 given in ED; Lisinopril 10 mg started-> BP 160's/80's afterwards with improvement in headache * No evidence of EOD- Creatinine 0.95 * Lisinopril started in ED-> Continue Lisinopril 10 mg daily * Trend BP's * Lopressor 5mg as needed for SBP >160 ordered * Trend labs and monitor renal functioning; lipids with AM labs HEVER 02/27 Pt's blood pressure currently improved but received IV metoprolol early AM. Also received already ordered lisinopril 10 mg this AM. BMP then available and pt's Cr 1.68. Denies any headache. reports feeling well. Drinking plenty of water. Echo pending. Discussed that at this time would not continue lisinopril given his elevation in creatinine. Plan to re-check BMP, pt updated and he is still hopeful to be discharged later today. Discussed BP monitoring at home, says he will get blood pressure cuff. Reports he has a follow up appointment scheduled for Saturday with PCP. Update: Met with the pt and his at the bedside twice to update them and discuss further steps. Then I also called the pt and discussed over the phone - when contacted by RN that pt wants to leave despite worsening renal function noted on repeat labs. Repeat BMP this PM showing Cr of 1.86, also updated on elevated blood glucose level and recommendation to monitor closely, repeat bloodwork tmrw - if without improvement - would consult w/ nephrology. Patient understands and wishes to be discharged and follow up with primary care doctor on Saturday and have his BMP checked. I explained that if his Cr still elevated/ worsening, he will likely be asked to go to the hospital and usually "can't be fixed by primary care physician" - again pt says he understands and wishes to be discharged and follow up in outpatient setting. Discussed management of elevated blood pressure - and recommendation to continue manage BP inpt - pt says he can monitor his BP at home - I told him he can monitor it but can't act on it if his BP is very elevated (as it was on admission just yesterday) - pt says he will come back to hospital if that's the case and still insists on being discharged. Also asks me "I can sign myself out, right?" #Elevated Troponin - secondary to hypertension initially concern for possible new onset of CHF * Trop elevated 38.7, down to 27.2 at 2H recheck; no CP * EKG showing sinus tachy * BNP mildly elevated 207 * Bilateral lower leg edema longstanding without outpatient followup, reportedly, resolves with BLE elevation, chronic venous stasis changes noted, no significant edema noted on 02/27 * Chest Xray with mild cardiomegaly with possible pulmonary vascular congestion- >Lasix 20 mg given x 1 in ED * Routine Echo obtained - Normal LV systolic function, No significant valvular pathology. RV is normal in size, RV syst. function is normal. * Discharge planning- pt reports to have pcp follow up on Saturday that he plans to attend #Diabetes Type I, insulin-dependent * Self-managed insulin outpatient with no PCP oversight; NPH 40 units BID with Regular insulin at meals 20-30 units; AM blood sugars 180's * current Hgb A1C 8.5% * SSI while inpatient-> adjust as needed * Continue home NPH regimen 40 units BID * diabetic education (2) CHF (congestive heart failure): (3) Elevated troponin: (4) Diabetes: Total Time Total Time Spent Total Time Spent (In Minutes): 40 Discharge Plan Discharge Items Patient Disposition: Home - Self-Care Reason For Visit: CHF Discharge Diagnosis: Hypertensive urgency Acute kidney injury Uncontrolled diabetes, DM1, with Hgb A1c 8.5% Condition on Discharge: Fair Activity: Per Instructions section Non-emergency contact: Primary Care Provider Call non-emergency contact if: you have any medication questions and your symptoms worsen Follow-up/Referrals: Jennie Fitzgerald PA-C [Primary Care Provider] - Diet: Carb Count or DM1 and Heart Healthy Addtl Attending Provider Instructions: As discussed, recommend that you have your kidney function, blood pressure and blood glucose levels monitored / re-checked in the hospital. As you wish to be discharged and follow up closely with primary care physician , attend your scheduled appointment on Saturday - at that time , recommend you have your blood work done to re-check your kidney function, and WBC count. Also recommend to monitor your blood pressure and record your numbers - discuss your numbers with your healthcare providers so that your medication can be further adjusted. Your Hemoglobin A1c is 8.5% - please follow up with your primary care provider regarding your diabetes. Pending Studies at Discharge: No Stand-Alone Forms: My [employer], Smoking Cessation Medications and DC Order Prescriptions: New carvedilol [Coreg] 3.125 mg tablet 3.125 mg PO BID Qty: 10 0RF Rx Instructions: must administer with a meal/food Continued multivitamin [Multi-Vitamin] Tablet 1 tab PO DAILY Qty: 0 Humulin N NPH U-100 Insulin 100 unit/mL Suspension 40 unit SUBCUT BID fluticasone propionate [Flonase Allergy Relief] 50 mcg/actuation [place],Suspension 1 spray INTRANASAL DAILY Rx Instructions: administer into each nostril Humulin R Regular U-100 Insuln 1 sliding scale dose subcut UD Discharge Orders: Discharge Order (Routine); Ordered 02/27/25 Ordered By: Dave Serrano/Other Patient Handouts: Managing Type 1 Diabetes Admission Data Admit Date/Time: 02/26/25 16:04 Attending Provider: Dave Jason Admit Provider: Alvin Cagle Primary Care Provider: Jennie Fitzgerald Other Providers: Alvin Cagle
--- NOTE | 2025-03-01 12:51 | Electrocardiogram Report ---
Test Reason : Blood Pressure : */* mmHG Vent. Rate : 104 BPM Atrial Rate : 104 BPM P-R Int : 148 ms QRS Dur : 80 ms QT Int : 338 ms P-R-T Axes : 43 35 42 degrees QTcB Int : 444 ms Sinus tachycardia Possible Left atrial enlargement Possible Inferior infarct , age undetermined Possible Anterior infarct (cited on or before 09-May-2014) Abnormal ECG When compared with ECG of 30-Jul-2014 18:45, Questionable change in QRS duration Confirmed by Jonathan Cooper ([id number]) on 03/01/2025 12:50:48 PM Referred By: REFERRED SELF Confirmed By: Jonathan Cooper
--- NOTE | 2025-03-01 12:53 | Coding Query ---
CONGESTIVE HEART FAILURE To Promote full compliance with coding requirements relating to patient care, physician participation is requested in all cases of slps uncertainty. Please assist us with the following questions. A diagnosis of initially concern for Possible new onset of Congestive Heart Failure is documented in the patient's medical record. To accurately code this diagnosis and to compare patient severity, we ask that you specify the type of heart failure by placing an X within the parenthesis (x). SYSTOLIC HEART FAILURE ( ) Acute ( ) Chronic ( ) Acute on Chronic ( ) Rheumatic ( ) Unknown DIASTOLIC HEART FAILURE ( ) Acute ( ) Chronic ( ) Acute on Chronic ( ) Rheumatic ( ) Unknown COMBINED SYSTOLIC AND DIASTOLIC HEART FAILURE ( ) Acute ( ) Chronic ( ) Acute on Chronic ( ) Rheumatic ( ) Unknown ( x ) Possible new onset of Congestive Heart Failure is Ruled-Out. Possible new onset of CHF unlikely given echo and physical exam findings. Thank you Leora AVILA
== END 2025-02-27 16:45 | disposition home or self-care (01) | DRG 305 ==
LOC: ED 12:58 → SUATTDRO 16:04 → 2N 16:04